=== PATIENT | male | born 1985 | race American Indian/Alaskan Native ===

== ENCOUNTER 2020-05-17 13:59 | Emergency (ER) | payer SELFPAY ==
[2020-05-17 14:12] VITALS: BP 183/116
--- NOTE | 2020-05-17 14:45 | Emergency Department Report ---
ED ENT HPI - General Chief complaint: Earache Stated complaint: RT EAR BITE Source: patient Mode of arrival: Ambulatory Limitations: No Limitations - History of Present Illness Initial comments: 35-year-old -[place] male presents to the emergency room for a 5-day history of right ear swelling and irritation. Patient states that it started off small and then has gotten worse with swelling drainage from the ear pain not that intense but does have a foul odor to the discharge per patient. Patient denies any headache denies any nausea no vomiting. He denies any injury to his ear. He denies any dizziness and balance. It was noted in triage that patient had elevated blood pressure without history. Patient denies any headache chest pain or shortness of breath. Patient does report he has not slept in 2 to 3 days. 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 MD complaint: ear pain Onset/Timin -: days(s) Severity scale (0 -10): 2 Quality: aching Consistency: intermittent Improves with: none Associated Symptoms: discharge from ear - Related Data Previous Rx's Medication Instructions Recorded Last Taken Type Amoxicillin/K Clav Tab [Augmentin 1 tab PO Q12HR 10 Days #20 tab 05/17/20 Unknown Rx 875 mg] Neomyc/Colist/Hydrocort/Thonzn 4 drop OT QID 10 Days #1 drops.susp 05/17/20 Unknown Rx [Cortisporin-Tc Ear Suspension] amLODIPine 5 mg PO DAILY #30 tab 05/17/20 Unknown Rx Allergies Allergy/AdvReac Type Severity Reaction Status Date / Time No Known Allergies Allergy Unverified 05/17/20 14:06 ED Dental HPI - General Chief complaint: Earache Stated complaint: RT EAR BITE Source: patient Mode of arrival: Ambulatory Limitations: No Limitations - Related Data Previous Rx's Medication Instructions Recorded Last Taken Type Amoxicillin/K Clav Tab [Augmentin 1 tab PO Q12HR 10 Days #20 tab 05/17/20 Unknown Rx 875 mg] Neomyc/Colist/Hydrocort/Thonzn 4 drop OT QID 10 Days #1 drops.susp 05/17/20 Unknown Rx [Cortisporin-Tc Ear Suspension] amLODIPine 5 mg PO DAILY #30 tab 05/17/20 Unknown Rx Allergies Allergy/AdvReac Type Severity Reaction Status Date / Time No Known Allergies Allergy Unverified 05/17/20 14:06 ED Review of Systems ROS: Stated complaint: RT EAR BITE Other details as noted in HPI Comment: All other systems reviewed and negative ED Past Medical Hx - Past Medical History Previous Medical History?: No - Surgical History Past Surgical History?: Yes Additional Surgical History: right hip surgery - Social History Smoking Status: Current Some Day Smoker Substance Use Type: Alcohol, Marijuana - Medications Home Medications: Home Medications Medication Instructions Recorded Confirmed Last Taken Type Amoxicillin/K Clav Tab [Augmentin 1 tab PO Q12HR 10 Days #20 tab 05/17/20 Unknown Rx 875 mg] Neomyc/Colist/Hydrocort/Thonzn 4 drop OT QID 10 Days #1 drops.susp 05/17/20 Unknown Rx [Cortisporin-Tc Ear Suspension] amLODIPine 5 mg PO DAILY #30 tab 05/17/20 Unknown Rx ED Physical Exam - General Limitations: No Limitations General appearance: alert, in no apparent distress - Head Head exam: Present: atraumatic, normocephalic - Eye Eye exam: Present: normal appearance - Expanded ENT Exam Expanded TM/Canal exam: Canal Discharge: Right TM, Canal Tenderness: Right TM - Neck Neck exam: Present: normal inspection, full ROM - Respiratory Respiratory exam: Absent: accessory muscle use - Cardiovascular Cardiovascular Exam: Present: regular rate, normal rhythm. Absent: systolic murmur, diastolic murmur, rubs, gallop - GI/Abdominal GI/Abdominal exam: Present: soft. Absent: distended - Back Exam Back exam: Present: normal inspection, full ROM - Neurological Exam Neurological exam: Present: alert, oriented X3, normal gait - Psychiatric Psychiatric exam: Present: normal affect, normal mood - Skin Skin exam: Present: warm, dry, intact, normal color. Absent: rash ED Course Vital Signs 05/17/20 14:07 Temperature 98.1 F Pulse Rate 98 H Respiratory 20 Rate Blood Pressure 183/116 O2 Sat by Pulse 99 Oximetry ED Medical Decision Making - Medical Decision Making 35-year-old -[place] male presents to the emergency room for a 5-day history of right ear swelling and irritation. Patient states that it started off small and then has gotten worse with swelling drainage from the ear pain not that intense but does have a foul odor to the discharge per patient. Patient denies any headache denies any nausea no vomiting. He denies any injury to his ear. He denies any dizziness and balance. It was noted in triage that patient had elevated blood pressure without history. Patient denies any headache chest pain or shortness of breath. Patient does report he has not slept in 2 to 3 days. 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 Discussed with patient he has severe otitis externa with discharge that is purulent and foul-smelling. Discussed with patient that I will place him on oral antibiotics as well as eardrops and he can take [id number] ibuprofen or Tylenol for any pain. Also recommend patient to follow-up with a primary care provider for his elevated blood pressure. I did start him on amlodipine 5 mg and referred him to Dr. Davonte Emmanuel internal medicine provider. I also referred patient to clinical research administrator as if his ear does not improve in the next 5 days to follow-up. Patient verbalized understanding. Critical care attestation.: If time is entered above; I have spent that time in minutes in the direct care of this critically ill patient, excluding procedure time. ED Disposition Clinical Impression: HTN (hypertension) Qualifiers: Hypertension type: unspecified Qualified Code(s): I10 - Essential (primary) hypertension External otitis of right ear Qualifiers: Otitis externa type: diffuse Chronicity: acute Qualified Code(s): H60.311 - Diffuse otitis externa, right ear Disposition: DC-01 TO HOME OR SELFCARE Is pt being admited?: No Does the pt Need Aspirin: No Condition: Stable Instructions: Hypertension (ED), Ear Drops, Adult, [id number], Otitis Externa, [id number], Hypertension, Adult, [id number] Additional Instructions: Please complete antibiotics as prescribed. Tylenol or ibuprofen as needed for pain management. Follow-up with a specialty molder/ear nose and throat provider. Prescriptions: amLODIPine 5 mg PO DAILY #30 tab Amoxicillin/K Clav Tab [Augmentin 875 mg] 1 tab PO Q12HR 10 Days #20 tab Neomyc/Colist/Hydrocort/Thonzn [Cortisporin-Tc Ear Suspension] 4 drop OT QID 10 Days #1 drops.susp Referrals: TATIANA RODGERS MD [Staff Physician] - 3-5 Days PRIMARY MD MARILYNN [Primary Care Provider] - 3-5 Days DAVONTE EMMANUEL MD [Staff Physician] - 3-5 Days Forms: Work/School Release Form(ED)
== END 2020-05-17 15:07 | disposition home or self-care (01) ==
LOC: ED 13:59
DX: H60.91 Unspecified otitis externa, right ear (principal); I10 Essential (primary) hypertension; F17.200 Nicotine dependence, unspecified, uncomplicated; F12.10 Cannabis abuse, uncomplicated; Z79.899 Other long term (current) drug therapy
CPT/HCPCS: 99282